=== PATIENT | male | born 1960 | race Two or more races ===

== ENCOUNTER 2021-07-23 16:43 | Emergency (ER) | payer OTHER ==
[~2021-07-23] VITALS: Ht 177.8 cm; Wt 81.6 kg
[2021-07-23 18:01] VITALS: BP 125/79
== END 2021-07-23 21:12 | disposition home or self-care (01) ==
LOC: ER 16:43
DX: S13.8XXA Sprain of joints and ligaments of other parts of neck, initial encounter (principal); M79.621 Pain in right upper arm; Z88.0 Allergy status to penicillin; V49.59XA Passenger injured in collision with other motor vehicles in traffic accident, initial encounter; Y93.89 Activity, other specified; Y92.488 Other paved roadways as the place of occurrence of the external cause; Y99.8 Other external cause status